=== PATIENT | male | born 1935 | race Caucasian/White ===

== ENCOUNTER 2016-10-30 17:06 | Observation (INO) | payer MEDICARE, BC ==
--- NOTE | ~2016-10-30 | HP ---
History And Physical [address] [place]. [address] NAME: DANA LANDRUM : 35 STATUS : ADM Raul PAT#: [id number] AGE: 81 ADM/REG DATE : 10/30/16 MR#: [id number] REPORT SERV DATE: 10/31/16 DICTATED BY: ITA SMITH DATE: 10/31/16 REPORT STATUS : Draft TRANSCRIBED BY: ROCIO DATE: 10/31/16 DATE OF ADMISSION: 10/30/2016 CHIEF COMPLAINT: Chest pain and dizziness. HISTORY OF PRESENT ILLNESS: This very pleasant 81-year-old male with no prior coronary artery disease, who states he was standing in his kitchen yesterday around 11 a.m. when he had sudden "funny feeling in my head" with some blurred vision and dizziness, accompanied with chest tightness. He states the chest tightness extended up into his neck, and all of the symptoms lasted for a total of about five seconds. A few minutes later, the same symptoms recurred, again lasting a few seconds. His was concerned and brought him to our emergency department for further evaluation. He was admitted to our chest pain observation unit and has had no further episodes while here. The patient denies any palpitations associated with the episodes. He denies headache, one-sided weakness, or sudden change in speech. He denies personal history for MT, CVA, PE, or DVT. He has been treated for rectal cancer and has an ostomy and postoperatively after his surgery for the rectal cancer, he had some atrial fibrillation in 2012. At that time, he had a nuclear stress test, which was low risk, as well as echocardiogram, which did not show any major abnormalities. He was seen by Dr. Neal in the hospital at that time. The patient was asymptomatic with his atrial fibrillation in 2013 and none has been documented since according to the patient. The patient denies any recent significant shortness of breath, orthopnea, PND, or lower extremity edema. No recent fever, cough, or chills. MEDICAL HISTORY: 1. Mixed hyperlipidemia, intolerant of statins secondary to myalgias. 2. Hypertension. 3. Rectal cancer, status post abdominoperineal resection with ostomy in 2012. 4. Insulin-dependent diabetes mellitus, type 2. 5. Echocardiogram in 2013 showing mild diastolic dysfunction, EF 65%, and aortic valve sclerosis without stenosis. 6. Postoperative atrial fibrillation in 2013. 7. Nuclear stress test in 2013, which was a low-risk stress test. 8. CKD 3. 9. GERD. PAST SURGICAL HISTORY: 1. Tonsillectomy and adenoidectomy. 2. Cholecystectomy in 2009. 3. Abdominoperineal resection in 2013. HOME MEDICATIONS: Metoprolol 12.5 b.i.d., insulin NovoLog 40 units subcu before meals, insulin glargine 8 units at bedtime subcu, Prilosec 20 daily, multivitamin daily. ALLERGIES: NO KNOWN DRUG ALLERGIES. History And Physical [address] [address] NAME: DANA LANDRUM : 35 STATUS : ADM Raul PAT#: [id number] AGE: 81 ADM/REG DATE : 10/30/16 MR#: [id number] REPORT SERV DATE: 10/31/16 DICTATED BY: ITA SMITH DATE: 10/31/16 REPORT STATUS : Draft TRANSCRIBED BY: ROCIO DATE: 10/31/16 SOCIAL HISTORY: The patient is and lives with his , who is at bedside. Their stepdaughter also lives with them. He has never smoked. Denies alcohol use. FAMILY HISTORY: Father of an MT in his 60s. REVIEW OF SYSTEMS: Negative, except as indicated above. PHYSICAL EXAMINATION: VITAL SIGNS: Blood pressure 149/76, heart rate 81, temperature 98.0, pulse oximetry 94% on room air. BMI 22.5. GENERAL: Well developed, well nourished, in no acute distress. HEENT: Anicteric. Normal EOM. Head, normocephalic. PERRLA, no xanthelasma. NECK: Supple. No JVD. Carotids normal without bruits. LUNGS: Clear to auscultation bilaterally anterior and posterior. Respirations even and unlabored. CARDIAC: S1, S2. Regular rate and rhythm. No murmurs, rubs, or gallops. No chest wall tenderness. ABDOMEN: There is an ostomy with stool present to the lower quadrants. Abdomen is soft and nontender with normoactive bowel sounds. No abdominal bruits or masses appreciated. EXTREMITIES: No peripheral edema. DP/PT and radial pulses palpable bilaterally. No clubbing or cyanosis. SKIN: Warm and dry. Normal turgor. No pallor or cyanosis. MUSCULOSKELETAL: Moving all extremities x4. Normal muscle strength. NEURO/PSYCH: Alert and oriented with appropriate affect. LABORATORY DATA: White blood count 7.4, hemoglobin 14.4, hematocrit 41.9. Sodium 142, potassium 4.3, BUN 23, creatinine 1.4. Troponin 0.03, less than 0.02 and 0.03. Chest x-ray shows no acute cardiopulmonary processes. EKGs, interpreted by myself, indicate first EKG with a sinus tachycardia and first-degree AV block. Subsequent EKGs show some evidence of sinus arrhythmia, normal OH interval, and some inferior Q-waves. There is also poor R-wave progression through the anteroseptal leads. Also, tele review shows sinus arrhythmia with no events. ASSESSMENT AND PLAN: 1. Presyncopal episode with brief blurred vision and chest pain, lasting seconds. The patient denies any recent exertional chest pains. His neurological exam is intact. No evidence of CVA. I am suspicious that the patient might have had an arrhythmia given his history of atrial fibrillation in 2013. No events currently noted on telemetry. I have discussed this case with the [employer] food preservation scientist, Dr. Emery, and she would like to pursue nuclear stress testing today. We will send him for a stress testing today and if no ischemia indicated or any significant arrhythmias, we will plan to discharge him home with outpatient Holter monitor. We will send a copy of the Holter report to his primary care physician and recommend followup in next one to two weeks. 2. Hypertension, appears controlled. We will continue his small dose of metoprolol outpatient. History And Physical [address] [address] NAME: DANA LANDRUM : 35 STATUS : ADM Raul PAT#: [id number] AGE: 81 ADM/REG DATE : 10/30/16 MR#: [id number] REPORT SERV DATE: 10/31/16 DICTATED BY: ITA SMITH DATE: 10/31/16 REPORT STATUS : Draft TRANSCRIBED BY: ROCIO DATE: 10/31/16 3. Mixed hyperlipidemia, intolerant of statins. 4. History of postoperative atrial fibrillation in 2012. Plans for Holter monitor as above. 5. Insulin-dependent diabetic. We will institute level 1 sliding scale insulin protocol while he is here. DBT/MODL Ita Smith NP / [phone] CC: Elisabeth Moon, OSVALDO, PARER-BC Chelo Gonzalez M.D.
[2016-10-30 16:52] LABS: BASOPHILS 0.4 %; BASOPHILS ABSOLUTE 0.03 10/3/uL (0.0-0.16); EOSINOPHILS ABSOLUTE 0.22 10/3/uL (0.0-0.53); ER CBC TAT 0 Hrs 08 Mins; IMMATURE GRANULOCYTES 0.3 %; IMMATURE GRANULOCYTES ABSOLUTE 0.02 10/3/uL (0.0-0.11); LYMPHOCYTES 23.2 %; LYMPHOCYTES ABSOLUTE 1.72 10/3/uL (0.67-4.30); MEAN CORPUS HGB CONC 34.4 g/dL (32.0-36.0); MEAN PLATELET VOLUME 11.4 fL (9.2-13.0); MONOCYTES 9.6 %; MONOCYTES ABSOLUTE 0.71 10/3/uL (0.21-1.20); NEUTROPHILS 63.5 %; NEUTROPHILS ABSOLUTE 4.71 10/3/uL (2.02-8.40); PLATELET COUNT 211 10/3/uL (150-400); RBC DISTRIBUTION WIDTH 12.2 % (12.0-16.0); WHITE BLOOD CELLS 7.4 10/3/uL (4.5-10.5)
[2016-10-30 16:53] LABS: HEMATOCRIT 41.9 % (40.0-51.0); HEMOGLOBIN 14.4 g/dL (13.6-17.8); MANUAL DIFF NO %; MEAN CORPUSCULAR HEMOGLOB 31.9 pg (26.0-34.0); MEAN CORPUSCULAR VOLUME 92.7 fL (80-100); RED CELL COUNT 4.52 10/6/uL (4.7-6.1)
[2016-10-30 16:59] LABS: INTERNATIONAL NORMAL RATI 1.1 UNITS (-); PARTIAL THROMBO TIME 29.3 SEC (22.5-37.2); PROTIME (NOT ORD) 13.9 SEC (12.0-14.5)
[~2016-10-30 17:06] MED LIST: ASAB PO; FLOMAX4 PO; HUMALOG SC; LANTUS SC; LOP25 PO; LORTAB; LORTAB 5 PO; MULTIVIT/MIN PO; PRAVAC PO; PRILO PO; PRIN2.5 PO; SEPTRA DS1 TAB PO; ZYRTEC ALLGY10 MG PO
[2016-10-30 17:10] LABS: BUN (BLOOD UREA NITROGEN) 23 MG/DL (6-23); CALCIUM, SERUM 8.7 MG/DL (8.5-10.4); CHEST PAIN PROFILE TAT 0 Hrs 26 Mins; CHLORIDE, SERUM 108 MMOL/L (96-112); CO2 (CARBON DIOXIDE) 27 MMOL/L (24-34); CREATININE 1.42 MG/DL (0.70-1.30); GFR AFRICAN AMERICAN 53 ML/MIN (>=60); GFR NON AFRICAN AMERICAN 46 ML/MIN (>=60); POTASSIUM, SERUM 4.3 MMOL/L (3.5-5.3); SODIUM, SERUM 142 MMOL/L (135-148); TROPONIN I <0.02 NG/ML (<0.05)
[2016-10-30 17:11] LABS: GLUCOSE, SERUM 172 MG/DL (60-99)
[2016-10-30] MEDS ORDERED: LOP25 PO (19:06)
[2016-10-30] MEDS ORDERED: NOVOLOG SC (19:07)
[2016-10-30] MEDS ORDERED: LANTUS SC (19:08)
[2016-10-30] MEDS ORDERED: PRILO PO (19:09)
[2016-10-30] MEDS ORDERED: MULTIVITAMI1 PO (19:09)
== END 2016-10-31 14:00 | disposition home or self-care (01) ==
LOC: ER 17:06 → CDU1 18:22
PROVIDERS: Emergency Medicine
DX: R55 Syncope and collapse (principal); I12.9 Hypertensive chronic kidney disease with stage 1 through stage 4 chronic kidney disease, or unspecified chronic kidney disease; E11.22 Type 2 diabetes mellitus with diabetic chronic kidney disease; N18.3 Chronic kidney disease, stage 3 (moderate); I48.0 Paroxysmal atrial fibrillation; I10 Essential (primary) hypertension; E78.2 Mixed hyperlipidemia; K21.9 Gastro-esophageal reflux disease without esophagitis; Z90.49 Acquired absence of other specified parts of digestive tract; Z90.89 Acquired absence of other organs; Z82.49 Family history of ischemic heart disease and other diseases of the circulatory system; Z85.048 Personal history of other malignant neoplasm of rectum, rectosigmoid junction, and anus; Z79.4 Long term (current) use of insulin; Z79.899 Other long term (current) drug therapy
CPT/HCPCS: 71010; 78452; 80048; 82962; 83735; 84484; 85025; 85610; 85730; 93005; 93017; 93225; 99285; A9270-GY; A9502; G0378